=== PATIENT | female | born 1960 | race Caucasian/White ===

== ENCOUNTER 2020-05-07 13:29 | Emergency (ER) | payer MEDICARE, BC ==
[2020-05-07] MEDS ORDERED: Sodium Chloride 0.9% 1,000 ML IV ONE (13:36)
--- NOTE | 2020-05-07 13:58 | EDM.PDOC ---
ED HPI GENERAL MEDICAL PROBLEM - General Chief Complaint: General Stated Complaint: Urinary Sx Time Seen by Provider: 05/07/20 13:40 Source of Information: Reports: Patient History Limitations: Reports: No Limitations - History of Present Illness INITIAL COMMENTS - FREE TEXT/NARRATIVE: Maribel is a 60 year old who presents with lower quadrant abdominal discomfort, hematuria, dysuria and back pain. States started having frequency with mild burning several days ago, had been pushing fluids and cranberry juice. Symptoms worsened in the las 24 hours. Denies any fevers. No nausea or vomiting. Admits to pain across her lower back. No diarrhea, melena or hematochezia. PMH is negative. Only takes vitamins daily, no prescription medications. Onset: Gradual Duration: Day(s):, Getting Worse Location: Reports: Abdomen, Back Quality: Reports: Ache Severity: Moderate Associated Symptoms: Reports: Loss of Appetite, Malaise. Denies: Confusion, Chest Pain, Cough, Fever/Chills, Nausea/Vomiting, Shortness of Breath lower abd Pain Score (Numeric/FACES): 8 - Related Data Allergies Allergy/AdvReac Type Severity Reaction Status Date / Time Penicillins Allergy Hives Verified 05/07/20 13:31 Home Meds: Home Meds Ascorbic Acid [Vitamin C] 1,000 mg PO DAILY 05/07/20 [History] Cholecalciferol (Vitamin D3) [Vitamin D] 5,000 unit PO DAILY 05/07/20 [History] Past Medical History - Past Health History Medical/Surgical History: Denies Medical/Surgical History Other [employer]HEL[employer] History: hysterectomy Social & Family History - Family History Family Medical History: Noncontributory - Tobacco Use Tobacco Use Status *Q: Never Tobacco User Second Hand Smoke Exposure: No - Caffeine Use Caffeine Use: Reports: None - Recreational Drug Use Recreational Drug Use: No ED ROS GENERAL - Review of Systems Review Of Systems: See Below Constitutional: Reports: Malaise. Denies: Fever, Chills, Weakness, Fatigue HEENT: Denies: Ear Pain, Sinus Problem, Throat Pain Respiratory: Denies: Shortness of Breath, Cough Cardiovascular: Denies: Chest Pain, Edema, Lightheadedness Endocrine: Denies: Fatigue GI/Abdominal: Reports: Abdominal Pain. Denies: Constipation, Diarrhea, Nausea, Vomiting : Reports: Dysuria, Frequency, Hematuria Musculoskeletal: Reports: No Symptoms Skin: Reports: No Symptoms Neurological: Reports: No Symptoms ED EXAM, GENERAL - Physical Exam Exam: See Below Exam Limited By: No Limitations General Appearance: Alert, WD/WN, Mild Distress Ears: Normal External Exam, Normal TMs Nose: Normal Inspection, Normal Mucosa, No Blood Throat/Mouth: Normal Inspection, Normal Oropharynx Head: Normocephalic Neck: Normal Inspection, Supple, Non-Tender Respiratory/Chest: No Respiratory Distress, Lungs Clear, Normal Breath Sounds Cardiovascular: Regular Rate, Rhythm GI/Abdominal: Normal Bowel Sounds, Soft, Tender (bilateral lower quadrants) Extremities: Normal Inspection, No Pedal Edema Neurological: Alert, Oriented Skin Exam: Warm, Dry Course - Vital Signs Last Recorded V/S: Last Vital Signs Temp 98.8 F 05/07/20 17:50 Pulse 89 05/07/20 17:50 Resp 16 05/07/20 17:50 BP 167/78 H 05/07/20 17:50 Pulse Ox 97 05/07/20 17:50 - Orders/Labs/Meds Orders: Active Orders 24 hr Category Date Time Status CULTURE BLOOD [BC] Stat Lab 05/07/20 14:00 Results CULTURE BLOOD [BC] Stat Lab 05/07/20 14:08 Received CULTURE URINE [RM] Stat Lab 05/07/20 13:32 Received cefTRIAXone [Rocephin] Med 05/07/20 14:30 Active 1 gm IVPUSH Q24H fentaNYL [Sublimaze] Med 05/07/20 14:03 Active 25 mcg IVPUSH Q6H PRN Blood Culture x2 Reflex Set [OM.PC] Stat Oth 05/07/20 13:32 Ordered Medication Orders Ceftriaxone Sodium (Rocephin) 1 gm IVPUSH Q24H NAHOMY Last Admin: 05/07/20 15:57 Dose: 1 gm Documented by: DUNG Fentanyl (Sublimaze) 25 mcg IVPUSH Q6H PRN PRN Reason: Pain Last Admin: 05/07/20 15:57 Dose: 25 mcg Documented by: Admin: 05/07/20 14:12 Dose: 25 mcg Documented by: DUNG Labs: Laboratory Tests 05/07/20 05/07/20 05/07/20 Range/Units 13:32 14:08 14:08 WBC 10.7 H (5.0-10.0) 10^3/uL RBC 4.87 (4.00-5.50) 10^6/uL Hgb 14.2 (12.0-16.0) g/dL Hct 42.7 (37.0-47.0) % MCV 87.7 (82.0-94.0) fL MCH 29.2 (27.0-32.0) pg MCHC 33.3 (33.0-38.0) g/dL RDW Coeff of Cyril 12.3 (11.0-15.0) % Plt Count 277 (150-400) 10^3/uL Neut % (Auto) 77.8 (35-85) % Lymph % (Auto) 13.9 (10-55) % Broome % (Auto) 6.3 (0-16) % Eos % (Auto) 1.5 (0-5) % Baso % (Auto) 0.5 (0-3) % Neut # (Auto) 8.35 H (1.80-7.00) 10^3/uL Lymph # (Auto) 1.49 (1.00-4.80) 10^3/uL Broome # (Auto) 0.68 (0.00-0.80) 10^3/uL Eos # (Auto) 0.16 (0.00-0.45) 10^3/uL Baso # (Auto) 0.05 10^3/uL Sodium 134 L (136-145) mEq/L Potassium 4.0 (3.5-5.0) mEq/L Chloride 96 L (98-106) mEq/L Carbon Dioxide 26 (21-32) mmol/L BUN 10 (7-18) mg/dL Creatinine 0.9 (0.6-1.0) mg/dL Est Cr Clr Drug Dosing 63.78 mL/min Estimated GFR (MDRD) > 60 (>=60) mL/min Glucose 274 H (75-99) mg/dL Lactic Acid (0.4-2.0) mmol/L Calcium 9.8 (8.4-10.1) mg/dL Magnesium 1.5 L (1.8-2.4) mg/dL Total Bilirubin 0.4 (0.0-1.0) mg/dL AST 37 (15-37) U/L ALT 43 (12-78) U/L Alkaline Phosphatase 101 (46-116) U/L C-Reactive Protein 1.6 H (0.2-0.8) mg/dL Total Protein 8.6 H (6.4-8.2) g/dL Albumin 3.8 (3.4-5.0) g/dL Urine Color Fernanda (YELLOW) Urine Appearance Cloudy (CLEAR) Urine pH 5.0 (4.5-8.0) Ur Specific Florence >= 1.030 H (1.003-1.020) Urine Protein >=300 H (NEGATIVE) mg/dL Urine Glucose (UA) 100 H (NEGATIVE) mg/dL Urine Ketones Negative (NEGATIVE) mg/dL Urine Occult Blood Large H (NEGATIVE) Urine Nitrite Positive H (NEGATIVE) Urine Bilirubin Negative (NEGATIVE) Urine Urobilinogen 0.2 (0.2-1.0) EU/dL Ur Leukocyte Esterase Small H (NEGATIVE) Urine RBC 50-75 H (0-5) /HPF Urine WBC 30-40 H (0-5) /HPF Ur Squamous Epith Cells Not seen (NOT SEEN) /HPF Urine Bacteria Few H (NOT SEEN) /HPF Urine Mucus Not seen (NOT SEEN) /HPF 05/07/20 05/07/20 Range/Units 14:08 17:48 WBC (5.0-10.0) 10^3/uL RBC (4.00-5.50) 10^6/uL Hgb (12.0-16.0) g/dL Hct (37.0-47.0) % MCV (82.0-94.0) fL MCH (27.0-32.0) pg MCHC (33.0-38.0) g/dL RDW Coeff of Cyril (11.0-15.0) % Plt Count (150-400) 10^3/uL Neut % (Auto) (35-85) % Lymph % (Auto) (10-55) % Broome % (Auto) (0-16) % Eos % (Auto) (0-5) % Baso % (Auto) (0-3) % Neut # (Auto) (1.80-7.00) 10^3/uL Lymph # (Auto) (1.00-4.80) 10^3/uL Broome # (Auto) (0.00-0.80) 10^3/uL Eos # (Auto) (0.00-0.45) 10^3/uL Baso # (Auto) 10^3/uL Sodium (136-145) mEq/L Potassium (3.5-5.0) mEq/L Chloride (98-106) mEq/L Carbon Dioxide (21-32) mmol/L BUN (7-18) mg/dL Creatinine (0.6-1.0) mg/dL Est Cr Clr Drug Dosing mL/min Estimated GFR (MDRD) (>=60) mL/min Glucose (75-99) mg/dL Lactic Acid 2.5 H 1.9 (0.4-2.0) mmol/L Calcium (8.4-10.1) mg/dL Magnesium (1.8-2.4) mg/dL Total Bilirubin (0.0-1.0) mg/dL AST (15-37) U/L ALT (12-78) U/L Alkaline Phosphatase (46-116) U/L C-Reactive Protein (0.2-0.8) mg/dL Total Protein (6.4-8.2) g/dL Albumin (3.4-5.0) g/dL Urine Color (YELLOW) Urine Appearance (CLEAR) Urine pH (4.5-8.0) Ur Specific Florence (1.003-1.020) Urine Protein (NEGATIVE) mg/dL Urine Glucose (UA) (NEGATIVE) mg/dL Urine Ketones (NEGATIVE) mg/dL Urine Occult Blood (NEGATIVE) Urine Nitrite (NEGATIVE) Urine Bilirubin (NEGATIVE) Urine Urobilinogen (0.2-1.0) EU/dL Ur Leukocyte Esterase (NEGATIVE) Urine RBC (0-5) /HPF Urine WBC (0-5) /HPF Ur Squamous Epith Cells (NOT SEEN) /HPF Urine Bacteria (NOT SEEN) /HPF Urine Mucus (NOT SEEN) /HPF Meds: Medications Generic Name Dose Route Start Last Admin Trade Name Freq PRN Reason Stop Dose Admin Ceftriaxone Sodium 1 gm 05/07/20 14:30 05/07/20 15:57 Rocephin IVPUSH 1 gm Q24H NAHOMY Administration Fentanyl 25 mcg 05/07/20 14:03 05/07/20 15:57 Sublimaze IVPUSH 25 mcg Q6H PRN Administration Pain Discontinued Medications Generic Name Dose Route Start Last Admin Trade Name Freq PRN Reason Stop Dose Admin Sodium Chloride 1,000 mls @ 250 mls/hr 05/07/20 13:36 05/07/20 14:13 Normal Saline IV 05/07/20 17:35 250 mls/hr ONETIME ONE Administration - Re-Assessments/Exams Free Text/Narrative Re-Assessment/Exam: 05/07/20 14:36 Labs reviewed. Does have high lactic acid. 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 IV fluids infusing. Will give Rocephin and repeat lactic acid in 4 hours. 05/07/20 18:17 Lactic acid improved to 1.9. Will discharge home. Start oral antibiotics tomorrow. Departure - Departure Time of Disposition: 18:30 Disposition: Home, Self-Care 01 Condition: Fair Clinical Impression: UTI, Urinary tract infectious disease - Discharge Information *PRESCRIPTION DRUG MONITORING PROGRAM REVIEWED*: No *COPY OF PRESCRIPTION DRUG MONITORING REPORT IN PATIENT ARTUR: No Instructions: Urinary Tract Infection, Adult Forms: ED Department Discharge Additional Instructions: 1. Push fluids 2. Tylenol or ibuprofen for fever/discomfort 3. Levaquin 500 mg daily for 10 days 4. Slo Mag 64 mg daily 5. Follow up this week for recheck of blood pressure 6. Contact Dr. Means's office for any questions or concerns. Sepsis Event Note (ED) - Evaluation Sepsis Screening Result: No Definite Risk - Focused Exam Vital Signs: Vital Signs Temp Pulse Resp BP Pulse Ox 05/07/20 17:50 98.8 F 89 16 167/78 H 97 05/07/20 13:44 99.6 F 98 18 186/109 H 97 - My Orders Last 24 Hours: My Active Orders 05/07/20 13:32 CULTURE URINE [RM] Stat Blood Culture x2 Reflex Set [OM.PC] Stat 05/07/20 14:00 CULTURE BLOOD [BC] Stat 05/07/20 14:03 fentaNYL [Sublimaze] 25 mcg IVPUSH Q6H PRN 05/07/20 14:08 CULTURE BLOOD [BC] Stat 05/07/20 14:30 cefTRIAXone [Rocephin] 1 gm IVPUSH Q24H - Assessment/Plan Last 24 Hours: My Active Orders 05/07/20 13:32 CULTURE URINE [RM] Stat Blood Culture x2 Reflex Set [OM.PC] Stat 05/07/20 14:00 CULTURE BLOOD [BC] Stat 05/07/20 14:03 fentaNYL [Sublimaze] 25 mcg IVPUSH Q6H PRN 05/07/20 14:08 CULTURE BLOOD [BC] Stat 05/07/20 14:30 cefTRIAXone [Rocephin] 1 gm IVPUSH Q24H
[2020-05-07] MEDS: fentaNYL 100 MCG/2 ML SDV IVPUSH PRN ×2 (14:12→15:57)
[2020-05-07 14:27] LABS: CHLORIDE,CL 96 mEq/L (98-106); SODIUM,NA 134 mEq/L (136-145)
[2020-05-07] MEDS ORDERED: cefTRIAXone 1 GM Vial IVPUSH SCH (14:30)
== END 2020-05-07 18:36 | disposition home or self-care (01) ==
LOC: CC.ED 13:29
DX: N39.0 Urinary tract infection, site not specified (principal); R31.9 Hematuria, unspecified; Z88.0 Allergy status to penicillin; Z90.710 Acquired absence of both cervix and uterus
CPT/HCPCS: 36415; 80053; 81001; 83605; 83735; 85025; 86140; 87040; 87086; 87088; 87186; 96374; 96375; 99284; 99284-25; J0696; J3010; J7030